=== PATIENT | female | born 1995 | race Caucasian/White ===

== ENCOUNTER 2020-08-24 08:41 | Emergency (ER) | payer OTHER ==
[~2020-08-24] VITALS: Ht 157.5 cm; Wt 99.3 kg
--- NOTE | 2020-08-24 09:14 | NUR ---
PT BIB POV WITH SPOUSE. PT REPORTS CRAMPING AND SPOTTING X1 WEEK, INCREASED SPOTTING TODAY. PT STATES SHE HAS NOT GONE THROUGH ANY PADS BUT THE BLEEDING IS INCREASED. 18 WEEKS GESTATION. . PT RESTING IN [place] NOTED AT THIS TIME. WILL CONTINUE TO MONITOR.
[2020-08-24 09:44] LABS: BASOPHILS % (AUTO) 0 % (0-1); EOSINOPHILS % (AUTO) 0 % (1-7); LYMPHOCYTES % (AUTO) 18 % (22-44); MEAN CORPUSCULAR HEMOGLOBIN 30.5 pg (27.0-34.8); MEAN CORPUSCULAR HGB CONC 34.4 g/dL (32.4-35.8); MONOCYTES % (AUTO) 7 % (2-9); NEUTROPHILS % (AUTO) 75 % (42-75); PLATELET COUNT 280 x10^3/uL (130-400); RED BLOOD COUNT 4.42 x10^6/uL (3.82-5.3); RED CELL DISTRIBUTION WIDTH 12.7 % (9.6-15.2)
[2020-08-24 09:47] LABS: MD NO
[2020-08-24 09:56] LABS: ALBUMIN 3.2 g/dL (3.4-5.0); ANION GAP 7 mmol/L (5-15); CALCIUM 8.5 mg/dL (8.5-10.1); CHLORIDE 110 mmol/L (98-107)
[2020-08-24 10:07] LABS: MICROSCOPIC INDICATED
[2020-08-24 10:09] VITALS: BP 129/87
[2020-08-24 10:14] LABS: ALANINE AMINOTRANSFERASE 17 U/L (12-78); ALKALINE PHOSPHATASE 53 U/L (45-117); BILIRUBIN,TOTAL 0.3 mg/dL (0.2-1.0)
--- NOTE | 2020-08-24 11:50 | NUR ---
Patient given discharge instructions and they have confirmed that they understand the instructions. Patient ambulatory with steady gait.
== END 2020-08-24 11:59 | disposition home or self-care (01) ==
LOC: ED 09:09
DX: O20.0 Threatened abortion (principal); O23.42 Unspecified infection of urinary tract in pregnancy, second trimester; Z3A.18 18 weeks gestation of pregnancy
CPT/HCPCS: 36415; 76815; 80053; 81001; 84702; 85025; 87086; 99284

== ENCOUNTER 2020-09-17 16:47 | Outpatient (CLI) | payer OTHER | END 2020-09-17 20:10 | disposition home or self-care (01) | LOC: LDOP 16:47 | PROVIDERS: ATTEND Student in an Organized Health Care Education/Training Program | DX: O46.92 Antepartum hemorrhage, unspecified, second trimester (principal); Z3A.21 21 weeks gestation of pregnancy | CPT/HCPCS: 76815; 76830; 99211; G0463 ==

== ENCOUNTER 2020-09-28 14:57 | Outpatient (CLI) | payer OTHER ==
[2020-09-28 15:00] VITALS: BP 134/71
== END 2020-09-28 15:25 | disposition home or self-care (01) ==
LOC: LDOP 14:57
PROVIDERS: ATTEND Student in an Organized Health Care Education/Training Program
DX: O46.92 Antepartum hemorrhage, unspecified, second trimester (principal); Z3A.23 23 weeks gestation of pregnancy
CPT/HCPCS: 99211; G0463

== ENCOUNTER 2020-10-03 21:31 | Outpatient (CLI) | payer OTHER ==
[~2020-10-03] VITALS: Ht 157.5 cm; Wt 100.0 kg
[2020-10-03 21:30] VITALS: BP 138/74
== END 2020-10-03 22:37 | disposition home or self-care (01) ==
LOC: LDOP 21:31
PROVIDERS: ATTEND Student in an Organized Health Care Education/Training Program
DX: O46.92 Antepartum hemorrhage, unspecified, second trimester (principal); Z3A.24 24 weeks gestation of pregnancy
CPT/HCPCS: 99211; G0463

== ENCOUNTER 2020-12-25 11:26 | Outpatient (CLI) | payer OTHER ==
[~2020-12-25] VITALS: Ht 157.5 cm; Wt 109.1 kg
[2020-12-25 11:41] VITALS: BP 129/74
[2020-12-25] MEDS ORDERED: LACTATED RINGERS 1,000 ML IV SCH (13:00)
== END 2020-12-25 14:52 | disposition home or self-care (01) ==
LOC: CLISVCS 11:26 → LDOP 14:52
PROVIDERS: ATTEND Student in an Organized Health Care Education/Training Program
DX: O46.93 Antepartum hemorrhage, unspecified, third trimester (principal); O36.8393 Maternal care for abnormalities of the fetal heart rate or rhythm, unspecified trimester, fetus 3; Z3A.35 35 weeks gestation of pregnancy
CPT/HCPCS: 59025

== ENCOUNTER 2021-01-10 04:06 | Outpatient (CLI) | payer OTHER ==
[~2021-01-10] VITALS: Ht 157.5 cm; Wt 109.0 kg
[2021-01-10 04:27] VITALS: BP 132/76
== END 2021-01-10 05:28 | disposition home or self-care (01) ==
LOC: LDOP 04:06
PROVIDERS: ATTEND Student in an Organized Health Care Education/Training Program
DX: O62.9 Abnormality of forces of labor, unspecified (principal); Z3A.38 38 weeks gestation of pregnancy
CPT/HCPCS: 59025

== ENCOUNTER 2021-01-20 00:03 | Inpatient (IN) | payer OTHER ==
[~2021-01-20] VITALS: Ht 157.5 cm; Wt 109.1 kg
[2021-01-20] MEDS ORDERED: MISOPROSTOL 200 MCG TABLET ONE (00:39)
[2021-01-20] MEDS ORDERED: LIDOCAINE 1%, 20ML ONE (00:39)
[2021-01-20] MEDS ORDERED: ONDANSETRON 2MG/ML, 2ML IVPush PRN (01:00)
[2021-01-20] MEDS ORDERED: D5%-LACTATED RINGERS 1,000 ML IV SCH (01:00)
[2021-01-20] MEDS ORDERED: LACTATED RINGERS 1,000 ML IV SCH (01:00)
[2021-01-20] MEDS ORDERED: TERBUTALINE 1 MG/ML, 1ML IVPush PRN (01:00)
[2021-01-20] MEDS ORDERED: PENICILLIN GK 5,000,000 UNITS in DEXTROSE 5% 100 ML IVPB ONE (01:00)
[2021-01-20] MEDS ORDERED: FENTANYL PF 100 MCG/2ML IV PRN (01:00)
[2021-01-20] MEDS ORDERED: FENTANYL PF 100 MCG/2ML IVPush PRN (01:00)
[2021-01-20] MEDS ORDERED: PLEASE ENTER HEIGHT AND WEIGHT MC SCH (01:00)
[2021-01-20] MEDS ORDERED: CALCIUM CARBONATE 500 MG TAB.CHEW PO PRN (01:00)
[2021-01-20] MEDS ORDERED: OXYTOCIN 30U/ 0.9% NaCL 500ML 500 ML IV ONE (01:00)
[2021-01-20] MEDS ORDERED: TERBUTALINE 1 MG/ML, 1ML SQ PRN (01:00)
[2021-01-20 01:05] LABS: BASOPHILS % (AUTO) 1 % (0-1); EOSINOPHILS % (AUTO) 1 % (1-7); LYMPHOCYTES % (AUTO) 24 % (22-44); MEAN CORPUSCULAR HEMOGLOBIN 29.1 pg (27.0-34.8); MEAN CORPUSCULAR HGB CONC 33.6 g/dL (32.4-35.8); MEAN PLATELET VOLUME 9.4 fL (7.4-10.4); MONOCYTES % (AUTO) 8 % (2-9); NEUTROPHILS % (AUTO) 67 % (42-75); PLATELET COUNT 212 x10^3/uL (130-400); RED BLOOD COUNT 4.48 x10^6/uL (3.82-5.3); RED CELL DISTRIBUTION WIDTH 13.9 % (9.6-15.2)
[2021-01-20 01:07] LABS: MD NO
[2021-01-20] MEDS ORDERED: NEWBORN KIT ONE (01:14)
[2021-01-20] MEDS ORDERED: OXYTOCIN 30U/ 0.9% NaCL 500ML 500 ML ONE (01:14)
[2021-01-20] MEDS ORDERED: PENICILLIN GK 2,500,000 UNITS in DEXTROSE 5% 100 ML IVPB SCH (05:00)
[2021-01-20] MEDS ORDERED: ACETAMINOPHEN 325 MG TABLET ONE ×2 (18:17→18:18)
[2021-01-20] MEDS: IBUPROFEN 600 MG TABLET PO PRN (18:20)
[2021-01-20] MEDS ORDERED: OXYcodone IR 5MG TABLET PO PRN ×2 (18:30)
[2021-01-20] MEDS ORDERED: ACETAMINOPHEN 325 MG TABLET PO PRN ×2 (18:30)
[2021-01-20] MEDS ORDERED: MISOPROSTOL 200 MCG TABLET PR PRN (18:30)
[2021-01-20] MEDS ORDERED: SIMETHICONE 80 MG CHEW TAB PO PRN (18:30)
[2021-01-20] MEDS ORDERED: OXYcodone/APAP 5/325MG TABLET PO PRN ×2 (18:30)
[2021-01-20] MEDS ORDERED: ONDANSETRON 2MG/ML, 2ML IV PRN (18:30)
[2021-01-20] MEDS ORDERED: METHYLERGONOVINE 0.2 MG/ML IM PRN (18:30)
[2021-01-20 19:50] VITALS: BP 132/82
[2021-01-20] MEDS: OXYTOCIN 30U/ 0.9% NaCL 500ML 500 ML IV SCH (20:00)
[2021-01-20] MEDS: ACETAMINOPHEN 325 MG TABLET PO PRN (23:49)
[2021-01-20 23:52] VITALS: BP 122/73
[2021-01-21 01:31] LABS: BASOPHILS % (AUTO) 1 % (0-1); EOSINOPHILS % (AUTO) 0 % (1-7); LYMPHOCYTES % (AUTO) 11 % (22-44); MEAN CORPUSCULAR HEMOGLOBIN 28.9 pg (27.0-34.8); MEAN CORPUSCULAR HGB CONC 33.6 g/dL (32.4-35.8); MEAN PLATELET VOLUME 9.8 fL (7.4-10.4); MONOCYTES % (AUTO) 9 % (2-9); NEUTROPHILS % (AUTO) 80 % (42-75); PLATELET COUNT 220 x10^3/uL (130-400); RED CELL DISTRIBUTION WIDTH 14.2 % (9.6-15.2)
[2021-01-21 01:36] LABS: MD NO
[2021-01-21] MEDS: OXYTOCIN 30U/ 0.9% NaCL 500ML 500 ML IV SCH ×2 (03:45→14:30)
[2021-01-21] MEDS: IBUPROFEN 600 MG TABLET PO PRN ×4 (04:21→22:38)
[2021-01-21] MEDS: ACETAMINOPHEN 325 MG TABLET PO PRN ×5 (04:21→20:31)
[2021-01-21 04:41] VITALS: BP 125/79
[2021-01-21 07:10] VITALS: BP 116/79
[2021-01-21] MEDS: DOCUSATE 100 MG CAPSULE PO PRN ×2 (07:44→20:31)
[2021-01-21] MEDS: PRENATAL VIT/IRON/FA 1 EACH TABLET PO SCH (07:44)
[2021-01-21 12:30] VITALS: BP 124/82
[2021-01-21 19:30] VITALS: BP 116/74
[2021-01-22] MEDS: OXYTOCIN 30U/ 0.9% NaCL 500ML 500 ML IV SCH ×2 (00:29→10:30)
[2021-01-22] MEDS: ACETAMINOPHEN 325 MG TABLET PO PRN ×2 (01:29→05:30)
[2021-01-22] MEDS: IBUPROFEN 600 MG TABLET PO PRN (05:30)
[2021-01-22] MEDS ORDERED: IBUP-1222 PO (07:18)
[2021-01-22 08:00] VITALS: BP 132/83
[2021-01-22] MEDS: PRENATAL VIT/IRON/FA 1 EACH TABLET PO SCH (08:13)
[2021-01-22] MEDS: DOCUSATE 100 MG CAPSULE PO PRN (08:13)
== END 2021-01-22 10:27 | disposition home or self-care (01) | DRG 807 ==
LOC: LDIP 00:03 → 2NW 19:40
PROVIDERS: ADMIT Student in an Organized Health Care Education/Training Program; ATTEND Student in an Organized Health Care Education/Training Program
PROC: 10E0XZZ Delivery of Products of Conception, External Approach (ICD-10-PCS; principal; 2021-01-20)
PROC: 10907ZC Drainage of Amniotic Fluid, Therapeutic from Products of Conception, Via Natural or Artificial Opening (ICD-10-PCS; 2021-01-20)
PROC: 3E033VJ Introduction of Other Hormone into Peripheral Vein, Percutaneous Approach (ICD-10-PCS; 2021-01-20)
PROC: 10H07YZ Insertion of Other Device into Products of Conception, Via Natural or Artificial Opening (ICD-10-PCS; 2021-01-20)
PROC: 0HQ9XZZ Repair Perineum Skin, External Approach (ICD-10-PCS; 2021-01-20)
DX: O99.824 Streptococcus B carrier state complicating childbirth (principal); Z37.0 Single live birth; O69.81X0 Labor and delivery complicated by cord around neck, without compression, not applicable or unspecified; O70.0 First degree perineal laceration during delivery; O99.284 Endocrine, nutritional and metabolic diseases complicating childbirth; Z3A.39 39 weeks gestation of pregnancy; Z20.822 Contact with and (suspected) exposure to COVID-19; E55.9 Vitamin D deficiency, unspecified
CPT/HCPCS: 36415; 85025; 86592; 86850; 86900; 87635; G0378; J2540; J2590; J7120